=== PATIENT | female | born 1950 | race Caucasian/White ===

== ENCOUNTER → 2016-10-18 | Outpatient (CLI) | payer BC ==
[2016-10-18 13:08] LABS: EOS # 0.2 K/mm3 (0.0-0.50); LYMPH # 1.5 K/mm3 (1.5-4.5); LYMPH % 34.8 % (24.0-44.0); MEAN CORPUSCULAR HEMOGLOBIN 25.3 pg (27.0-33.0); MONO # 0.2 K/mm3 (0.0-0.8); MONO % 4.9 % (0.0-5.0); NEUTROPHILS # 2.3 K/mm3 (1.8-7.7); NEUTROPHILS % 53.9 % (36.0-66.0); WHITE BLOOD COUNT 4.3 K/mm3 (4.0-10.0)
[2016-10-18 14:02] LABS: ALBUMIN 3.5 GM/DL (3.2-5.2); ALBUMIN/GLOBULIN RATIO 0.97 (1.00-1.93); ALKALINE PHOSPHATASE 162 U/L (45-117); ALT/SGPT 52 U/L (12-78); ANION GAP 5 MEQ/L (8-16); AST/SGOT 43 U/L (15-37); BILIRUBIN,TOTAL 0.8 MG/DL (0.2-1.0); BLOOD UREA NITROGEN 15 MG/DL (7-18); CALCIUM LEVEL 9.2 MG/DL (8.8-10.2); CARBON DIOXIDE LEVEL 31 MEQ/L (21-32); CHLORIDE LEVEL 106 MEQ/L (98-107); CHOLESTEROL LEVEL 296 MG/DL (<200); CREATININE FOR GFR 0.59 MG/DL (0.55-1.02); FREE T4 1.07 NG/DL (0.76-1.46); GLOMERULAR FILTRATION RATE > 60.0 (>45); GLUCOSE, FASTING 80 MG/DL (80-110); POTASSIUM SERUM 4.8 MEQ/L (3.5-5.1); SODIUM LEVEL 142 MEQ/L (136-145); TOTAL PROTEIN 7.1 GM/DL (6.4-8.2); TRIGLYCERIDES LEVEL 89 MG/DL (<150)
== END ==
LOC: M WUC 10:33
PROVIDERS: ATTEND Family Medicine
DX: E78.2 Mixed hyperlipidemia (principal)

== ENCOUNTER → 2020-08-21 | Outpatient (REF) | payer MEDICARE, BC | LOC: M LAB REF 19:37 | PROVIDERS: ATTEND Physician Assistant | DX: N39.0 Urinary tract infection, site not specified (principal) ==

== ENCOUNTER → 2020-08-27 | Outpatient (REF) | payer MEDICARE, BC | LOC: M LAB REF 18:04 | PROVIDERS: ATTEND Physician Assistant | DX: N39.0 Urinary tract infection, site not specified (principal) ==

== ENCOUNTER → 2020-11-29 | Outpatient (CLI) | payer MEDICARE, BC ==
--- NOTE | 2020-11-29 08:49 | REP ---
INDICATION: ELEVATED LFT'S COMPARISON: None. TECHNIQUE: Real time ott scale ultrasound examination using curved array transducer. FINDINGS: Liver and pancreas are normal in contour, size, and echogenicity without focal hepatic or pancreatic lesions identified. Evidence for prior cholecystectomy. No biliary ductal dilatation is appreciated and the common bile duct measures 3.3 mm diameter. Right kidney is normal in reniform shape without hydronephrosis and measures 10.1 x 3.9 x 4.0 cm. No ascites in the visualized right upper quadrant. IMPRESSION: Normal limited right upper quadrant ultrasound prior cholecystectomy. <Electronically signed by Guy Yun > 11/29/20 0849
== END ==
LOC: M RAD 08:17
PROVIDERS: ATTEND Nurse Practitioner
DX: E78.00 Pure hypercholesterolemia, unspecified (principal); R94.5 Abnormal results of liver function studies; F10.10 Alcohol abuse, uncomplicated

== ENCOUNTER → 2021-01-16 | Outpatient (CLI) | payer MEDICARE, BC ==
[2021-01-16 16:51] LABS: BILIRUBIN,DIRECT 0.2 MG/DL (0.0-0.2); BILIRUBIN,TOTAL 0.4 MG/DL (0.2-1.0); TOTAL PROTEIN 7.4 GM/DL (6.4-8.2)
== END ==
LOC: M WUC 11:41
PROVIDERS: ATTEND Nurse Practitioner
DX: R94.5 Abnormal results of liver function studies (principal); F10.10 Alcohol abuse, uncomplicated; E78.00 Pure hypercholesterolemia, unspecified

== ENCOUNTER → 2021-01-16 | Outpatient (CLI) | payer MEDICARE, BC ==
[2021-01-16 16:51] LABS: ALBUMIN 4.1 GM/DL (3.2-5.2); ALT/SGPT 48 U/L (12-78); BILIRUBIN,TOTAL 0.5 MG/DL (0.2-1.0); BLOOD UREA NITROGEN 18 MG/DL (7-18); CALCIUM LEVEL 9.6 MG/DL (8.8-10.2); CARBON DIOXIDE LEVEL 28 MEQ/L (21-32); CHLORIDE LEVEL 105 MEQ/L (98-107); CHOLESTEROL LEVEL 370 MG/DL (<200); CHOLESTEROL RISK RATIO 6.065 (<5); GLOMERULAR FILTRATION RATE > 60.0 (>45); GLUCOSE, FASTING 113 MG/DL (70-100); HDL CHOLESTEROL 61 MG/DL (>40); LDL CHOLESTEROL 279 MG/DL (<100); NON-HDL-C 309 MG/DL; POTASSIUM SERUM 4.5 MEQ/L (3.5-5.1); SODIUM LEVEL 140 MEQ/L (136-145); TOTAL PROTEIN 7.5 GM/DL (6.4-8.2); TRIGLYCERIDES LEVEL 152 MG/DL (<150)
== END ==
LOC: M WUC 11:36
PROVIDERS: ATTEND Family Medicine
DX: E78.2 Mixed hyperlipidemia (principal); E55.9 Vitamin D deficiency, unspecified; R94.5 Abnormal results of liver function studies; F10.10 Alcohol abuse, uncomplicated; E78.00 Pure hypercholesterolemia, unspecified

== ENCOUNTER → 2021-05-19 | Outpatient (CLI) | payer MEDICARE, BC ==
[2021-05-19 12:13] LABS: ALBUMIN 3.8 GM/DL (3.2-5.2); BILIRUBIN,DIRECT 0.2 MG/DL (0.0-0.2); BILIRUBIN,TOTAL 0.8 MG/DL (0.2-1.0)
== END ==
LOC: M WUC 09:43
PROVIDERS: ATTEND Nurse Practitioner
DX: R94.5 Abnormal results of liver function studies (principal); E78.00 Pure hypercholesterolemia, unspecified; F10.10 Alcohol abuse, uncomplicated

== ENCOUNTER → 2021-05-19 | Outpatient (CLI) | payer MEDICARE, BC ==
[2021-05-19 12:12] LABS: ALBUMIN 3.8 GM/DL (3.2-5.2); ALT/SGPT 57 U/L (12-78); BILIRUBIN,TOTAL 0.6 MG/DL (0.2-1.0); BLOOD UREA NITROGEN 20 MG/DL (7-18); CALCIUM LEVEL 9.3 MG/DL (8.8-10.2); CARBON DIOXIDE LEVEL 32 MEQ/L (21-32); CHLORIDE LEVEL 107 MEQ/L (98-107); CHOLESTEROL LEVEL 225 MG/DL (<200); CHOLESTEROL RISK RATIO 3.358 (<5); CREATININE FOR GFR 0.73 MG/DL (0.55-1.30); GLOMERULAR FILTRATION RATE > 60.0 (>45); GLUCOSE, FASTING 111 MG/DL (70-100); HDL CHOLESTEROL 67 MG/DL (>40); LDL CHOLESTEROL 136 MG/DL (<100); NON-HDL-C 158 MG/DL; POTASSIUM SERUM 4.3 MEQ/L (3.5-5.1); SODIUM LEVEL 141 MEQ/L (136-145); TOTAL PROTEIN 6.9 GM/DL (6.4-8.2); TRIGLYCERIDES LEVEL 111 MG/DL (<150)
== END ==
LOC: M WUC 09:41
PROVIDERS: ATTEND Family Medicine
DX: E78.2 Mixed hyperlipidemia (principal); R94.5 Abnormal results of liver function studies; E78.00 Pure hypercholesterolemia, unspecified; F10.10 Alcohol abuse, uncomplicated

== ENCOUNTER → 2021-07-27 | Outpatient (CLI) | payer MEDICARE, BC ==
[~2021-07-27] MED LIST: GASTROGRAFIN SOLUTION 30ML (Q9963) As Ordered ONE
== END ==
LOC: M RAD 12:14
PROVIDERS: ATTEND Family Medicine
DX: N20.0 Calculus of kidney (principal)
CPT/HCPCS: 74176; Q9963

== ENCOUNTER → 2021-08-17 | Outpatient (CLI) | payer MEDICARE, BC | LOC: M WUC 10:56 | PROVIDERS: ATTEND Physician Assistant | DX: J20.9 Acute bronchitis, unspecified (principal) ==

== ENCOUNTER → 2021-09-07 | Outpatient (CLI) | payer MEDICARE, BC ==
[2021-09-07 16:45] LABS: ALBUMIN 3.8 GM/DL (3.2-5.2); BILIRUBIN,DIRECT 0.1 MG/DL (0.0-0.2); BILIRUBIN,TOTAL 0.5 MG/DL (0.2-1.0); TOTAL PROTEIN 6.9 GM/DL (6.4-8.2)
== END ==
LOC: M WUC 11:10
PROVIDERS: ATTEND Nurse Practitioner
DX: R94.5 Abnormal results of liver function studies (principal); E78.00 Pure hypercholesterolemia, unspecified; F10.10 Alcohol abuse, uncomplicated

== ENCOUNTER → 2021-10-18 | Outpatient (CLI) | payer MEDICARE, BC ==
[2021-10-18 14:29] LABS: BASO # 0.1 10^3/uL (0.0-0.2); EOS # 0.2 10^3/uL (0.0-0.5); EOS % 2.7 % (0.0-3.0); HEMOGLOBIN 14.6 g/dl (12.0-15.5); LYMPH # 2.3 10^3/uL (1.5-5.0); LYMPH % 32.6 % (24.0-44.0); MEAN CORPUSCULAR HEMOGLOBIN 28.5 pg (27.0-33.0); MEAN CORPUSCULAR HGB CONC 32.4 g/dl (32.0-36.5); MEAN CORPUSCULAR VOLUME 87.9 fl (80.0-96.0); MONO # 0.3 10^3/uL (0.0-0.8); MONO % 4.6 % (2.0-8.0); NEUTROPHILS # 4.2 10^3/uL (1.5-8.5); NEUTROPHILS % 58.7 % (36.0-66.0); PLATELET COUNT, AUTOMATED 279 10^3/uL (150-450); RED BLOOD COUNT 5.12 10^6/uL (4.00-5.40); WHITE BLOOD COUNT 7.1 10^3/uL (4.0-10.0)
[2021-10-18 15:15] LABS: ALBUMIN 3.9 GM/DL (3.2-5.2); ALT/SGPT 48 U/L (12-78); BILIRUBIN,TOTAL 0.5 MG/DL (0.2-1.0); BLOOD UREA NITROGEN 15 MG/DL (7-18); CALCIUM LEVEL 9.9 MG/DL (8.8-10.2); CARBON DIOXIDE LEVEL 30 MEQ/L (21-32); CHLORIDE LEVEL 108 MEQ/L (98-107); CHOLESTEROL LEVEL 408 MG/DL (<200); CHOLESTEROL RISK RATIO 7.034 (<5); CREATININE FOR GFR 0.67 MG/DL (0.55-1.30); FREE T4 0.94 NG/DL (0.76-1.46); GLOMERULAR FILTRATION RATE > 60.0 (>45); GLUCOSE, FASTING 93 MG/DL (70-100); HDL CHOLESTEROL 58 MG/DL (>40); LDL CHOLESTEROL 312 MG/DL (<100); NON-HDL-C 350 MG/DL; POTASSIUM SERUM 5.2 MEQ/L (3.5-5.1); SODIUM LEVEL 141 MEQ/L (136-145); THYROID STIMULATING HORMONE 0.726 uIU/ML (0.358-3.740); TOTAL PROTEIN 7.3 GM/DL (6.4-8.2); TRIGLYCERIDES LEVEL 188 MG/DL (<150)
== END ==
LOC: M LAB 13:37
PROVIDERS: ATTEND Family Medicine
DX: E78.2 Mixed hyperlipidemia (principal)

== ENCOUNTER → 2021-12-01 | Outpatient (CLI) | payer MEDICARE, BC ==
[2021-12-01 17:50] LABS: BASO # 0.1 10^3/uL (0.0-0.2); BASO % 1.2 % (0.0-1.0); EOS # 0.3 10^3/uL (0.0-0.5); EOS % 3.9 % (0.0-3.0); HEMATOCRIT 46.4 % (36.0-47.0); HEMOGLOBIN 14.9 g/dl (12.0-15.5); LYMPH # 3.1 10^3/uL (1.5-5.0); MEAN CORPUSCULAR HEMOGLOBIN 28.1 pg (27.0-33.0); MEAN CORPUSCULAR HGB CONC 32.1 g/dl (32.0-36.5); MEAN CORPUSCULAR VOLUME 87.5 fl (80.0-96.0); MONO # 0.4 10^3/uL (0.0-0.8); MONO % 5.8 % (2.0-8.0); NEUTROPHILS # 3.7 10^3/uL (1.5-8.5); NEUTROPHILS % 47.8 % (36.0-66.0); PLATELET COUNT, AUTOMATED 269 10^3/uL (150-450); WHITE BLOOD COUNT 7.6 10^3/uL (4.0-10.0)
[2021-12-01 18:27] LABS: ALKALINE PHOSPHATASE 183 U/L (45-117); ALT/SGPT 42 U/L (12-78); AST/SGOT 26 U/L (7-37); BILIRUBIN,TOTAL 0.6 MG/DL (0.2-1.0); BLOOD UREA NITROGEN 17 MG/DL (7-18); C REACTIVE PROTEIN QUANTITATIV 0.72 MG/DL (0.00-0.30); CALCIUM LEVEL 10.1 MG/DL (8.8-10.2); CARBON DIOXIDE LEVEL 30 MEQ/L (21-32); CHLORIDE LEVEL 102 MEQ/L (98-107); CREATININE FOR GFR 0.68 MG/DL (0.55-1.30); GLOMERULAR FILTRATION RATE > 60.0 (>45); GLUCOSE, FASTING 94 MG/DL (70-100); RHEUMATOID FACTOR QUANT < 10.0 IU/ML (<15.0); SODIUM LEVEL 137 MEQ/L (136-145); TOTAL PROTEIN 7.4 GM/DL (6.4-8.2)
[2021-12-05 19:08] LABS: ANCA-ATYPICAL <1:20 titer (Neg:<1:20); ANTINUCLEAR ANTIBODIES DIRECT Negative (Negative); CYTOPLASMIC NEUTROP AB ANCA-C <1:20 titer (Neg:<1:20); PERINUCLEAR AB ANCA-P <1:20 titer (Neg:<1:20); PR3 ANTIPROTEINASE ANTIBODIES <0.2 units (0.0-0.9)
== END ==
LOC: M WUC 10:53
DX: J38.6 Stenosis of larynx (principal)

== ENCOUNTER → 2021-12-01 | Outpatient (CLI) | payer MEDICARE, BC ==
[2021-12-01 18:30] LABS: ALBUMIN 4.1 GM/DL (3.2-5.2); BILIRUBIN,DIRECT 0.2 MG/DL (0.0-0.2); BILIRUBIN,TOTAL 0.5 MG/DL (0.2-1.0); TOTAL PROTEIN 7.2 GM/DL (6.4-8.2)
== END ==
LOC: M WUC 11:00
PROVIDERS: ATTEND Nurse Practitioner
DX: R94.5 Abnormal results of liver function studies (principal); Z86.010 Personal history of colon polyps; K22.70 Barrett's esophagus without dysplasia; F10.10 Alcohol abuse, uncomplicated

== ENCOUNTER → 2022-03-06 | Outpatient (CLI) | payer MEDICARE, BC ==
[2022-03-06 19:47] LABS: ALBUMIN 3.6 G/DL (3.2-5.2); BILIRUBIN,DIRECT 0.1 MG/DL (<0.4); BILIRUBIN,TOTAL 0.5 MG/DL (0.3-1.2); TOTAL PROTEIN 6.5 G/DL (5.7-8.2)
== END ==
LOC: M WUC 11:50
PROVIDERS: ATTEND Nurse Practitioner
DX: R94.5 Abnormal results of liver function studies (principal); F10.10 Alcohol abuse, uncomplicated; K22.70 Barrett's esophagus without dysplasia

== ENCOUNTER → 2022-04-02 | Outpatient (CLI) | payer MEDICARE, BC | LOC: M RAD 09:16 | PROVIDERS: ATTEND Nurse Practitioner | DX: R94.5 Abnormal results of liver function studies (principal); K76.0 Fatty (change of) liver, not elsewhere classified; K22.70 Barrett's esophagus without dysplasia; K59.00 Constipation, unspecified; Z86.010 Personal history of colon polyps; Z90.49 Acquired absence of other specified parts of digestive tract ==

== ENCOUNTER → 2022-06-20 | Outpatient (CLI) | payer MEDICARE, BC | LOC: M RAD 09:14 | PROVIDERS: ATTEND Family Medicine | DX: R91.8 Other nonspecific abnormal finding of lung field (principal); J84.10 Pulmonary fibrosis, unspecified; R16.1 Splenomegaly, not elsewhere classified; I70.0 Atherosclerosis of aorta; N20.0 Calculus of kidney; K76.89 Other specified diseases of liver; Z90.49 Acquired absence of other specified parts of digestive tract; M51.34 Other intervertebral disc degeneration, thoracic region ==

== ENCOUNTER → 2022-11-12 | Outpatient (CLI) | payer MEDICARE, BC ==
[2022-11-12 13:18] LABS: ALBUMIN 3.5 G/DL (3.2-5.2); ALKALINE PHOSPHATASE 130 U/L (46-116); ALT/SGPT 39 U/L (7.0-40); AST/SGOT 24 U/L (<34); BILIRUBIN,DIRECT < 0.1 MG/DL (<0.4); BILIRUBIN,TOTAL 0.5 MG/DL (0.3-1.2); TOTAL PROTEIN 6.3 G/DL (5.7-8.2)
[2022-11-13 16:52] LABS: LABILE ALKPHOS 98 U/L; STABLE ALKPHOS 43 U/L
== END ==
LOC: M WUC 09:18
PROVIDERS: ATTEND Nurse Practitioner
DX: R94.5 Abnormal results of liver function studies (principal); K76.0 Fatty (change of) liver, not elsewhere classified; K22.70 Barrett's esophagus without dysplasia; Z86.010 Personal history of colon polyps

== ENCOUNTER → 2023-06-12 | Outpatient (REF) | payer MEDICARE, BC ==
[2023-06-12 17:05] LABS: APPEARANCE, URINE CLOUDY (CLEAR); BACTERIA, URINE AUTO NEGATIVE (NEGATIVE); BILIRUBIN, URINE AUTO NEGATIVE (NEGATIVE); BLOOD, URINE BLOOD 2+ (NEGATIVE); COLOR, URINE AMBER (YELLOW); GLUCOSE, URINE (UA) AUTO NEGATIVE (NEGATIVE); KETONE, URINE AUTO NEGATIVE (NEGATIVE); LEUKOCYTE ESTERASE, URINE AUTO 1+ (NEGATIVE); MUCUS, URINE SMALL (NEGATIVE); NITRITE, URINE AUTO NEGATIVE (NEGATIVE); PROTEIN, URINE AUTO 3+ mg/dL (NEGATIVE); RBC, URINE AUTO 7 /HPF (0-3); SPECIFIC GRAVITY URINE AUTO 1.018 (1.002-1.035); SQUAMOUS EPITHELIAL CELL UR AU 0 /HPF (0-6); UROBILINOGEN, URINE AUTO 0.2 mg/dL (0.0-2.0); WBC, URINE AUTO 6 /HPF (0-3)
== END ==
LOC: M LAB REF 16:19 → M LABWUC 16:19
PROVIDERS: ATTEND Family Medicine
DX: R31.9 Hematuria, unspecified (principal)

== ENCOUNTER → 2023-08-12 | Outpatient (CLI) | payer MEDICARE | LOC: M WUC 12:37 | PROVIDERS: ATTEND Nurse Practitioner Family | DX: M25.561 Pain in right knee (principal) ==

== ENCOUNTER → 2023-11-06 | Outpatient (CLI) | payer MEDICARE ==
[2023-11-06 13:39] LABS: TOTAL 25(OH) VITAMIN D 33.6 NG/ML (20.0-100.0)
[2023-11-06 13:41] LABS: ALBUMIN 3.3 G/DL (3.2-5.2); ALKALINE PHOSPHATASE 149 U/L (46-116); ALT/SGPT 22 U/L (7.0-40); AST/SGOT 22 U/L (<34); BILIRUBIN,DIRECT < 0.1 MG/DL (<0.4); BILIRUBIN,TOTAL 0.4 MG/DL (0.3-1.2); TOTAL PROTEIN 6.3 G/DL (5.7-8.2)
== END ==
LOC: M PLALAB 09:32
PROVIDERS: ATTEND Nurse Practitioner
DX: R79.89 Other specified abnormal findings of blood chemistry (principal); E55.9 Vitamin D deficiency, unspecified

== ENCOUNTER → 2023-11-11 | Outpatient (CLI) | payer MEDICARE ==
[2023-11-11 16:09] LABS: ALBUMIN 3.5 G/DL (3.2-5.2); BILIRUBIN,DIRECT 0.1 MG/DL (<0.4); BILIRUBIN,TOTAL 0.5 MG/DL (0.3-1.2); TOTAL PROTEIN 6.4 G/DL (5.7-8.2)
[2023-11-11 16:12] LABS: TOTAL 25(OH) VITAMIN D 35.6 NG/ML (20.0-100.0)
== END ==
LOC: M LAB 15:03
PROVIDERS: ATTEND Nurse Practitioner
DX: R74.01 Elevation of levels of liver transaminase levels (principal)

== ENCOUNTER 2024-02-16 11:48 | Emergency (ER) | payer MEDICARE ==
[~2024-02-16] VITALS: Ht 157.5 cm; Wt 58.6 kg
[2024-02-16 14:28] LABS: HEMATOCRIT 38.9 % (36.0-47.0); HEMOGLOBIN 13.1 g/dl (12.0-15.5); MEAN CORPUSCULAR HEMOGLOBIN 26.7 pg (27.0-33.0); MEAN CORPUSCULAR HGB CONC 33.7 g/dl (32.0-36.5); MEAN CORPUSCULAR VOLUME 79.4 fl (80.0-96.0); PLATELET COUNT, AUTOMATED 134 10^3/uL (150-450); WHITE BLOOD COUNT 15.5 10^3/uL (4.0-10.0)
[2024-02-16 14:53] LABS: BLOOD UREA NITROGEN 31 MG/DL (9-23); CALCIUM LEVEL 9.4 MG/DL (8.3-10.6); CARBON DIOXIDE LEVEL 26 MMOL/L (20-31); CHLORIDE LEVEL 98 MMOL/L (98-107); CREATININE FOR GFR 0.86 MG/DL (0.55-1.30); GLOMERULAR FILTRATION RATE > 60.0 (>39); GLUCOSE, FASTING 115 MG/DL (74-106); POTASSIUM SERUM 3.2 MMOL/L (3.5-5.1); SODIUM LEVEL 133 MMOL/L (136-145)
[2024-02-16 15:04] LABS: LYMPHOCYTES 3 % (16-44); MONOCYTES 2 % (0-5); NEUTROPHILS 94 % (28-66)
[2024-02-16 15:05] LABS: MICROCYTOSIS 1+; PLATELET ESTIMATE DECREASED (NORMAL)
[2024-02-16 15:31] LABS: ERYTHROCYTE SEDIMENTATION RATE 71 mm/hr (0-30)
[2024-02-16 16:04] LABS: C REACTIVE PROTEIN QUANTITATIV 30.08 MG/DL (<1.0)
[2024-02-16] MEDS: KETOROLAC 30 MG/ML 1ML VIAL IV ONE (16:35)
[2024-02-16] MEDS: ACETAMINOPHEN 500 MG TAB PO ONE (16:35)
[2024-02-16] MEDS: BACTRIM 160MG/800MG DS TAB PO ONE (19:21)
[2024-02-16 19:31] LABS: HEMATOCRIT 35.8 % (36.0-47.0); HEMOGLOBIN 12.5 g/dl (12.0-15.5); MEAN CORPUSCULAR HEMOGLOBIN 27.7 pg (27.0-33.0); MEAN CORPUSCULAR HGB CONC 34.9 g/dl (32.0-36.5); MEAN CORPUSCULAR VOLUME 79.2 fl (80.0-96.0); PLATELET COUNT, AUTOMATED 124 10^3/uL (150-450); RED BLOOD COUNT 4.52 10^6/uL (4.00-5.40); WHITE BLOOD COUNT 14.2 10^3/uL (4.0-10.0)
[2024-02-16] MEDS ORDERED: BACT800T5 PO (20:03)
[2024-02-16 20:19] VITALS: BP 111/53; TEMP 98.1; O2SAT 94
== END 2024-02-16 20:20 | disposition home or self-care (01) ==
LOC: M ED 11:48
DX: N39.0 Urinary tract infection, site not specified (principal); Z88.0 Allergy status to penicillin; Z88.1 Allergy status to other antibiotic agents; Z79.899 Other long term (current) drug therapy
CPT/HCPCS: 71046; 73620; 80048; 81001; 83605; 85025; 85027; 85652; 86140; 87040; 87077; 87088; 87154; 87186; 87486; 87581; 87633; 87798; 96374; 99284; J1885

== ENCOUNTER → 2024-04-23 | Outpatient (CLI) | payer MEDICARE ==
[~2024-04-23] MED LIST changes: +BACT800T5 PO; -GASTROGRAFIN SOLUTION 30ML (Q9963) As Ordered ONE
[2024-04-23 16:26] LABS: HEMATOCRIT 43.5 % (36.0-47.0); MEAN CORPUSCULAR HEMOGLOBIN 27.8 pg (27.0-33.0); MEAN CORPUSCULAR HGB CONC 32.2 g/dl (32.0-36.5); MEAN CORPUSCULAR VOLUME 86.3 fl (80.0-96.0); PLATELET COUNT, AUTOMATED 230 10^3/uL (150-450); RED BLOOD COUNT 5.04 10^6/uL (4.00-5.40); WHITE BLOOD COUNT 7.8 10^3/uL (4.0-10.0)
[2024-04-23 16:38] LABS: INR 0.96; PROTHROMBIN TIME 13.1 SECONDS (12.5-14.5)
[2024-04-23 16:58] LABS: ALBUMIN 3.7 G/DL (3.2-5.2); ALKALINE PHOSPHATASE 190 U/L (35-104); ALT/SGPT 17 U/L (7.0-40); AST/SGOT 20 U/L (<34); BILIRUBIN,TOTAL 0.5 MG/DL (0.3-1.2); BLOOD UREA NITROGEN 24 MG/DL (9-23); CALCIUM LEVEL 9.7 MG/DL (8.3-10.6); CARBON DIOXIDE LEVEL 28 MMOL/L (20-31); CHLORIDE LEVEL 106 MMOL/L (98-107); CREATININE FOR GFR 0.68 MG/DL (0.55-1.30); GLOMERULAR FILTRATION RATE > 60.0 (>39); GLUCOSE, FASTING 122 MG/DL (74-106); MAGNESIUM LEVEL 1.9 MG/DL (1.8-2.4); POTASSIUM SERUM 4.2 MMOL/L (3.5-5.1); SODIUM LEVEL 142 MMOL/L (136-145); TOTAL PROTEIN 7.3 G/DL (5.7-8.2)
[2024-04-23 17:00] LABS: TOTAL 25(OH) VITAMIN D 29.7 NG/ML (20.0-100.0); VITAMIN B12 LEVEL 698 PG/ML (211-911)
== END ==
LOC: M WUC 15:05
PROVIDERS: ATTEND Nurse Practitioner
DX: K70.10 Alcoholic hepatitis without ascites (principal); I86.8 Varicose veins of other specified sites; R16.2 Hepatomegaly with splenomegaly, not elsewhere classified

== ENCOUNTER → 2024-05-07 | Outpatient (REF) | payer MEDICARE ==
[2024-05-07 18:21] LABS: APPEARANCE, URINE HAZY (CLEAR); BACTERIA, URINE AUTO NEGATIVE (NEGATIVE); BILIRUBIN, URINE AUTO NEGATIVE (NEGATIVE); BLOOD, URINE BLOOD 2+ (NEGATIVE); COLOR, URINE YELLOW (YELLOW); GLUCOSE, URINE (UA) AUTO NEGATIVE (NEGATIVE); KETONE, URINE AUTO NEGATIVE (NEGATIVE); LEUKOCYTE ESTERASE, URINE AUTO NEGATIVE (NEGATIVE); NITRITE, URINE AUTO NEGATIVE (NEGATIVE); PROTEIN, URINE AUTO 3+ mg/dL (NEGATIVE); RBC, URINE AUTO 14 /HPF (0-3); SPECIFIC GRAVITY URINE AUTO 1.018 (1.002-1.035); SQUAMOUS EPITHELIAL CELL UR AU 0 /HPF (0-6); UROBILINOGEN, URINE AUTO 0.2 mg/dL (0.0-2.0); WBC, URINE AUTO 2 /HPF (0-3)
== END ==
LOC: M LAB REF 17:24
PROVIDERS: ATTEND Student in an Organized Health Care Education/Training Program
DX: R31.9 Hematuria, unspecified (principal)

== ENCOUNTER → 2024-10-22 | Outpatient (CLI) | payer MEDICARE ==
[2024-10-22 14:47] LABS: PLATELET COUNT, AUTOMATED 273 10^3/uL (150-450)
[2024-10-22 14:59] LABS: INR 0.9
[2024-10-22 15:14] LABS: IRON (FE) 112 UG/DL (50-170); PERCENT SATURATION 37.2 % (13.2-45.0)
[2024-10-22 15:29] LABS: ALT/SGPT 26 U/L (7.0-40); AST/SGOT 28 U/L (<34); CALCIUM LEVEL 9.8 MG/DL (8.3-10.6); CARBON DIOXIDE LEVEL 31 MMOL/L (20-31); CHLORIDE LEVEL 104 MMOL/L (98-107); CREATININE FOR GFR 0.76 MG/DL (0.55-1.30); GLOMERULAR FILTRATION RATE 83.2 (>39); POTASSIUM SERUM 5.1 MMOL/L (3.5-5.1); SODIUM LEVEL 143 MMOL/L (136-145)
[2024-10-22 15:57] LABS: HEPATITIS B SURFACE ANTIBODY NEGATIVE (POSITIVE); HEPATITIS C VIRUS ABY INDEX < 0.02 INDEX (<0.8)
[2024-10-23 11:12] LABS: T P ELECTROPHORESIS SO 6.4 g/dL (6.1-8.1)
[2024-10-23 13:32] LABS: HEPATITIS A IgG TOTAL REACTIVE (NON-REACTIVE)
[2024-10-26 14:56] LABS: ANTI-MITOCHONDRIAL ANTIBODY NEGATIVE (NEGATIVE)
[2024-10-27 11:14] LABS: ALPHA 1 ANTITRYPSIN 157 mg/dL (83-199); CERULOPLASMIN 22.0 mg/dL (14-48)
[2024-10-28 06:44] LABS: ANTI-SMOOTH MUSCLE ANTIBODY < 20 U (<20)
[2024-10-28 08:12] LABS: ALBUMIN SPEP 4.1 g/dL (3.8-4.8); ALPHA-1-GLOBULINS SO 0.3 g/dL (0.2-0.3); ALPHA-2-GLOBULINS SO 0.5 g/dL (0.5-0.9); BETA 2 GLOBULIN 0.2 g/dL (0.2-0.5); BETA-GLOBULIN SO 0.4 g/dL (0.4-0.6); GAMMA GLOBULINS SO 0.9 g/dL (0.8-1.7); SPEP ABN PROTEIN BAND 1 0.4 g/dL (NONE DETECTED)
[2024-10-29 00:48] LABS: LIVER-KIDNEY MICROSOMAL ABY <= 20.0 U (<=20.0)
== END ==
LOC: M WUC 11:33
PROVIDERS: ATTEND Internal Medicine Gastroenterology
DX: K70.10 Alcoholic hepatitis without ascites (principal); E07.9 Disorder of thyroid, unspecified

== ENCOUNTER → 2024-11-16 | Outpatient (REF) | payer MEDICARE ==
[2024-11-16 13:18] LABS: APPEARANCE, URINE CLEAR (CLEAR); BACTERIA, URINE AUTO NEGATIVE (NEGATIVE); BILIRUBIN, URINE AUTO NEGATIVE (NEGATIVE); BLOOD, URINE BLOOD 2+ (NEGATIVE); GLUCOSE, URINE (UA) AUTO NEGATIVE (NEGATIVE); KETONE, URINE AUTO NEGATIVE (NEGATIVE); LEUKOCYTE ESTERASE, URINE AUTO NEGATIVE (NEGATIVE); MUCUS, URINE SMALL (NEGATIVE); NITRITE, URINE AUTO NEGATIVE (NEGATIVE); PROTEIN, URINE AUTO 2+ mg/dL (NEGATIVE); RBC, URINE AUTO 2 /HPF (0-3); SPECIFIC GRAVITY URINE AUTO 1.010 (1.002-1.035); SQUAMOUS EPITHELIAL CELL UR AU 0 /HPF (0-6); UROBILINOGEN, URINE AUTO 0.2 mg/dL (0.0-2.0); WBC, URINE AUTO 1 /HPF (0-3)
== END ==
LOC: M LAB REF 12:08
PROVIDERS: ATTEND Student in an Organized Health Care Education/Training Program
DX: R31.9 Hematuria, unspecified (principal)

== ENCOUNTER → 2024-12-04 | Outpatient (CLI) | payer MEDICARE | LOC: M RAD 07:33 | PROVIDERS: ATTEND Internal Medicine Gastroenterology | DX: K70.10 Alcoholic hepatitis without ascites (principal) ==

== ENCOUNTER → 2024-12-28 | Outpatient (CLI) | payer MEDICARE ==
[2024-12-28 18:07] LABS: CHOLESTEROL LEVEL 444.0 MG/DL (<200); CHOLESTEROL RISK RATIO 11.29 (<5); LDL CHOLESTEROL 336.3 MG/DL (<100); NON-HDL-C 404.7 MG/DL; TRIGLYCERIDES LEVEL 342.0 MG/DL (<150)
== END ==
LOC: M WUC 13:04
PROVIDERS: ATTEND Nurse Practitioner Family
DX: E78.019 Familial hypercholesterolemia, unspecified (principal)